=== PATIENT | female | born 1985 | race Caucasian/White ===

== ENCOUNTER 2023-07-06 13:45 | Day surgery (SDC) | payer OTHER ==
[2023-07-06] MEDS ORDERED: LIDOCAINE HCL 2% 100 MG/5 ML IJ ONE (13:46)
[2023-07-06 15:08] LABS: HCG URINE TEST NEGATIVE (NEGATIVE)
[2023-07-06] MEDS ORDERED: DIPRIVAN 200 MG/20 ML IV ONE (15:53)
[2023-07-06] MEDS ORDERED: Lactated Ringers 1,000 ML IV ONE (16:40)
--- NOTE | 2023-07-06 17:13 | XRAY ---
Indication: Bilateral L4-S1 MBB. Intraoperative fluoroscopy provided for 16 seconds. Single digital spot image submitted for interpretation demonstrates posterior needle tips projecting over the expected left and right L4-S1 nerve roots. Correlate with intraoperative findings/report.
--- NOTE | 2023-07-06 17:23 | XRAY ---
16 seconds of fluoroscopy was used in surgery for a bilateral L4-S1 MBB.
== END 2023-07-06 16:23 | disposition home or self-care (01) ==
LOC: SDC-PAIN 13:45
PROVIDERS: ATTEND Psychiatry & Neurology Pain Medicine
DX: M47.816 Spondylosis without myelopathy or radiculopathy, lumbar region (principal); Z79.899 Other long term (current) drug therapy
CPT/HCPCS: 64493; 64494; 72020; 77002; 81025; J2704